=== PATIENT | female | born 1985 | race Two or more races ===

== ENCOUNTER 2025-04-12 13:18 | Emergency (ER) | payer MEDICAID, SELFPAY ==
[2025-04-12 13:23] VITALS: BP 126/63; PULSE 78; RESP 16; TEMP 36.8; O2SAT 98; BMI 38.9
--- NOTE | 2025-04-12 13:29 | ED.GENADULT ---
HPI - General Adult General Chief complaint: Back Pain/Injury Stated complaint: 11 Wks Preg Back Pain Dark Urine Etc Time Seen by Provider: 04/12/25 15:46 Source: patient Mode of arrival: ambulatory Limitations: no limitations History of Present Illness ED Provider: HPI narrative: Eleven weeks , this is her 1st history of PCOS, was just seen at [facility] was given IV fluids, antiemetics, she states that she is having abdominal pain in the suprapubic area after transabdominal ultrasound. Vaginal ultrasound was not performed. No vaginal bleeding. No medications for hyperemesis prevention provided. No fevers or chills. No vaginal bleeding or discharge. Related Data Previous Rx's ?Medication ?Instructions ?Recorded doxylamine succinate 25 mg tablet 25 mg PO Q6H PRN nausea and 04/12/25 (Unisom (doxylamine)) vomiting 14 days #60 tabs nitrofurantoin 100 mg PO BID 5 days #10 caps 04/12/25 monohydrate/macrocrystals 100 mg capsule (Macrobid) vit no.95-ferrous 1 tab PO DAILY #60 tabs 04/12/25 fumarate 28 mg-folic acid 800 mcg tablet () pyridoxine (vitamin B6) 100 mg 100 mg PO Q6H PRN nausea and 04/12/25 tablet vomiting 14 days #60 tabs Allergies Allergy/AdvReac Type Severity Reaction Status Date / Time No Known Allergies Allergy Verified 04/12/25 13:24 Review of Systems Constitutional: Constitutional: Reports as per [facility] Social History Social History Smoked in Last 30 Days: No Use of substances other than those prescribed or required for medical reasons: No Advance Directives: No Advance Directives Information Provided: Yes Patient : Yes Physical Exam ED Vital Signs: Vital Signs - 24 hr 04/12/25 13:23 Temperature 98.3 F Pulse Rate 78 Respiratory Rate 16 Blood Pressure 126/63 Pulse Oximetry 98 Oxygen Delivery Method Room Air BMI result Body Mass Index 38.9 Const Other: Gen: ?Overall well-appearing patient CV: RRR, no obvious murmurs appreciated Resp: ?No wheezing rales rhonchi no stridor moving air well Abd: ?Bowel sounds are present, no tenderness no rebound no rigidity MSK: FROM, strength 5/5 all extremities Skin: Warm, dry, intact, Neuro: ?Alert and oriented x3, moving upper and lower extremities symmetrically, no obvious facial asymmetry noted Course Course Course Narrative: 04/12/25 1330 ANANT Prasad This is a Rapid Medical Examination (RME) performed by Sujata Hay PA-C in triage. Full HPI, ROS, assessment and treatment plan per primary provider in the Main ED. Hx: 39 yo F currently 11 wks preg here for eval of nausea, vomiting, dark colored urine, right low back pain and lower abdominal pressure x a few days. was seen at [facility] 1 week ago, admitted for fluids secondary to hyperemesis gravidarum. still feeling unwell. no vaginal bleeding. Plan: labs, hcg, UA Medications Administered Discontinued Medications Generic Name Dose Route Start Last Admin Trade Name Freq PRN Reason Stop Dose Admin Acetaminophen 975 mg 04/12/25 16:02 04/12/25 16:08 Acetaminophen 325 Mg Tablet PO 04/12/25 16:03 975 mg ONCE ONE Administration Ondansetron HCl 4 mg 04/12/25 16:02 04/12/25 16:08 Ondansetron Odt 4 Mg Tab.Rapdis TRANSLINGU 04/12/25 16:03 4 mg ONCE ONE Administration Medical Decision Making Medical Decision Making MDM Narrative: Considerations for workup as below, she just had an ultrasound 11 weeks intrauterine . Abdominal exam today is benign. Blood work urinalysis without any evidence for dehydration, she does have leukocytosis and some bacteria in the urine so start her on antibiotics as well. Differential Diagnosis Differential Diagnoses: The differential diagnosis associated with the presentation includes Dehydration, electrolyte derangements, UTI, ectopic . Admission/Observation Consideration of admission/observation: Escalation of care including admission/observation considered Lab Data 04/12/25 13:47 04/12/25 13:47 Labs: Lab Results 04/12/25 04/12/25 Range/Units 13:45 13:47 WBC 6.3 (4.8-10.8) X10*3/uL RBC 4.17 L (4.20-5.50) X10*6/uL Hgb 10.7 L (12.0-16.0) g/dl Hct 32.9 L (37.0-47.0) % MCV 78.9 L (80.0-98.0) fL MCH 25.7 L (27.0-33.0) pg MCHC 32.5 (31.0-35.0) g/dl RDW 17.3 H (11.0-16.0) % Plt Count 275 (160-400) X10*3/uL MPV 10.1 (9.4-12.3) fL Immature Gran % (Auto) 0.5 H (0.0-0.4) % Neut % (Auto) 71.1 (45-73) % Lymph % (Auto) 19.9 L (20-40) % [place] % (Auto) 7.1 (2-11) % Eos % (Auto) 1.1 (0-4) % Baso % (Auto) 0.3 (0-2) % Lymph # (Auto) 1.3 (1.2-4.9) X10*3/uL [place] # (Auto) 0.5 (0.1-1.2) X10*3/uL Eos # (Auto) 0.1 (0.0-0.4) X10*3/uL Baso # (Auto) 0.0 (0.0-0.2) X10*3/uL Abs Immat Gran (auto) 0.03 (0.00-0.03) X10*3/uL Absolute Neuts (auto) 4.5 (2.0-8.3) x10*3/uL Absolute Nucleated RBC 0.000 (0.0-0.012) X10*3/uL Nucleated RBC % (auto) 0.0 (0.0-0.2) /100WBC Sodium 136 (135-145) mmol/L Potassium 3.6 (3.3-5.1) mmol/L Chloride 107 (96-108) mmol/L Carbon Dioxide 24 (22-29) mmol/L Anion Gap 9 L (12-20) BUN 8 L (9-16) mg/dL Creatinine 0.67 (0.5-1.4) mg/dL Estim Creat Clear Calc 119.8 Estimated GFR > 60 Random Glucose 106 (60-115) mg/dL Calcium 9.3 (8.4-10.2) mg/dL Magnesium 1.6 (1.6-2.6) mg/dL Total Bilirubin 0.7 (0.0-1.0) mg/dL AST 33 H (5-31) U/L ALT 70 H (0-31) U/L Alkaline Phosphatase 88 (39-117) U/L Total Protein 7.2 (6.5-8.0) g/dL Albumin 3.7 (3.5-5.0) g/dL Lipase 16 (8-78) U/L Beta HCG, Quant 932167 mIU/mL Urine Color Yellow Urine Appearance Clear Urine pH 6.5 (5.0-9.0) Ur Specific [place] 1.010 (1.005-1.025) Urine Protein Negative (Neg-Trace) mg/dL Urine Glucose (UA) Negative (Negative) mg/dL Urine Ketones Negative (Negative) mg/dL Urine Blood Trace H (Negative) Urine Nitrite Negative (Negative) Ur Leukocyte Esterase Trace H (Negative) Urine RBC 3-5 H (0-2) /HPF Urine WBC 6-10 H (0-5) /HPF Ur Squamous Epith Cells 3-5 (0-2) /HPF Urine Bacteria 1+ (None Seen) Hyaline Casts 0-2 (0-2) /LPF Discharge Plan Discharge Clinical Impression: First trimester , Hyperemesis arising during , Iron (Fe) deficiency anemia, Urinary tract infection during Patient Disposition: Home, Self-Care Instructions: (ED), Hyperemesis Gravidarum (ED), Anemia (ED) Additional Instructions: A few things that were found on your blood work and urinalysis, you are not dehydrated, you do not require IV fluids however I did find that you have anemia likely iron deficiency anemia. . Also if you are not on vitamins you need to be on vitamins ( has Iron supplemet as well ) I can prescribe this as well. Your urine shows possibility of urinary tract infection I will prescribe antibiotics and other medications take as prescribed to prevent hyperemesis in the 1st trimester. It is important for you to have a clip loading machine feeder in your follow-up. In the meantime any other issues or concerns come back to the ER Prescriptions: New nitrofurantoin monohyd/m-cryst [Macrobid] 100 mg capsule 100 mg PO BID 5 Days Qty: 10 0RF Rx Instructions: must administer with a meal/food Unisom (doxylamine) 25 mg tablet 25 mg PO Q6H PRN (Reason: nausea and vomiting) 14 Days Qty: 60 0RF pyridoxine (vitamin B6) 100 mg tablet 100 mg PO Q6H PRN (Reason: nausea and vomiting) 14 Days Qty: 60 0RF PNV cmb#95-ferrous fumarate-FA [] 28 mg iron- 800 mcg tablet 1 tab PO DAILY Qty: 60 0RF Print Language: Citizen [place]
[2025-04-12 13:51] LABS: MANUAL DIFF FLAG NO
[2025-04-12 13:53] LABS: Appearance Urine Clear; Color Urine Yellow; Glucose Urine UA Negative (Negative); Leukocyte Esterase Urine Trace (Negative); Nitrite Urine Negative (Negative); PH 6.5 (5.0-9.0); UMIC TRIGGER UACC YES; Urine Blood Trace (Negative); Urine Ketones Negative (Negative); Urine Protein Negative (Neg-Trace)
[2025-04-12 13:53] LABS: Basophils Percent Auto 0.3 % (0-2); Eosinophils Absolute Auto 0.1 X10*3/uL (0.0-0.4); Eosinophils Percent Auto 1.1 % (0-4); Hematocrit 32.9 % (37.0-47.0); Hemoglobin 10.7 g/dl (12.0-16.0); Imm Gran Abs Auto 0.03 X10*3/uL (0.00-0.03); Imm Gran Pct Auto 0.5 % (0.0-0.4); Lymphocytes Absolute Auto 1.3 X10*3/uL (1.2-4.9); Lymphocytes Percent Auto 19.9 % (20-40); Mean Corpuscular HGB Conc 32.5 g/dl (31.0-35.0); Mean Corpuscular Hemoglobin 25.7 pg (27.0-33.0); Mean Corpuscular Volume 78.9 fL (80.0-98.0); Mean Platelet Volume 10.1 fL (9.4-12.3); Monocytes Absolute Auto 0.5 X10*3/uL (0.1-1.2); Monocytes Percent Auto 7.1 % (2-11); Neutrophils Absolute Auto 4.5 x10*3/uL (2.0-8.3); Neutrophils Percent Auto 71.1 % (45-73); Platelet Count 275 X10*3/uL (160-400); Red Blood Count 4.17 X10*6/uL (4.20-5.50); Red Cell Distribution Width 17.3 % (11.0-16.0); White Blood Count 6.3 X10*3/uL (4.8-10.8)
[2025-04-12 13:59] LABS: Bacteria Urine 1+ (None Seen); Hyaline Casts Urine 0-2 /LPF (0-2); UACC Culture Trigger YES
[2025-04-12 14:14] LABS: Alanine Aminotransferase 70 U/L (0-31); Albumin Level 3.7 g/dL (3.5-5.0); Alkaline Phosphatase 88 U/L (39-117); Anion Gap 9 (12-20); Aspartate Amino Transferase 33 U/L (5-31); Bilirubin Total 0.7 mg/dL (0.0-1.0); Blood Urea Nitrogen 8 mg/dL (9-16); Calcium 9.3 mg/dL (8.4-10.2); Carbon Dioxide 24 mmol/L (22-29); Chloride 107 mmol/L (96-108); Creatinine Clr Calc Pharmacy 119.8; Estimated Glomerular Filt Rate > 60; Glucose Random 106 mg/dL (60-115); Lipase 16 U/L (8-78); Magnesium 1.6 mg/dL (1.6-2.6); Potassium 3.6 mmol/L (3.3-5.1); Sodium 136 mmol/L (135-145); Total Protein 7.2 g/dL (6.5-8.0)
[2025-04-12] MEDS: Ondansetron ODT 4 MG TAB.RAPDIS TRANSLINGU (16:08)
[2025-04-12] MEDS: Acetaminophen 325 MG TABLET 975 MG PO (16:08)
[2025-04-12 16:33] VITALS: BP 107/65; PULSE 69; RESP 18; TEMP 36.4; O2SAT 100
[2025-04-12 16:37] VITALS: BP 107/65; PULSE 69; RESP 18; TEMP 36.4; O2SAT 100
== END 2025-04-12 16:37 | disposition home or self-care (01) ==
PROVIDERS: Physician Assistant Medical; Emergency Provider Emergency Medicine
DX: O21.0 Mild hyperemesis gravidarum (principal); R10.9 Unspecified abdominal pain; O23.41 Unspecified infection of urinary tract in pregnancy, first trimester; N39.0 Urinary tract infection, site not specified; O99.011 Anemia complicating pregnancy, first trimester; Z3A.11 11 weeks gestation of pregnancy
CPT/HCPCS: 36415; 80053; 81001; 83690; 83735; 84702; 85025; 87086; 99283; 99284